=== PATIENT | male | born 1965 | race Hispanic/Latino ===

== ENCOUNTER 2021-01-28 12:20 | Emergency (ER) | payer SELFPAY ==
[2021-01-28] MEDS ORDERED: Bacitracin 1 PK ONE ×2 (12:32→13:07)
[2021-01-28] MEDS ORDERED: Boostrix 0.5 ML (Tdap) VIAL ONE (12:32)
[2021-01-28] MEDS ORDERED: Lidocaine 2% PF 5 ML VIAL ONE ×2 (12:32→13:06)
[2021-01-28] MEDS ORDERED: Sterile Water 10 ML ONE (12:50)
[2021-01-28] MEDS ORDERED: cefTRIAXone\\ROCEPHIN 2 GM VIAL ONE (12:50)
== END 2021-01-28 13:53 | disposition home or self-care (01) ==
LOC: BURERS 12:20
DX: S61.411A Laceration without foreign body of right hand, initial encounter (principal); W45.8XXA Other foreign body or object entering through skin, initial encounter
CPT/HCPCS: 12042; 90471; 90715; 96372; J0696; J2001